=== PATIENT | male | born 1980 | race Caucasian/White ===

== ENCOUNTER 2017-02-22 10:30 | Emergency (ER) | payer SELFPAY ==
[~2017-02-22] VITALS: Ht 170.2 cm; Wt 72.6 kg
[2017-02-22 10:39] VITALS: BP 140/87; PULSE 97; RESP 16; TEMP 98.4; O2SAT 98
[2017-02-22] MEDS ORDERED: HIBI4LIQ TOPICAL (11:04)
[2017-02-22] MEDS ORDERED: BACT800T5 PO (11:04)
--- NOTE | 2017-02-22 11:04 | PD ---
HPI Chief Complaint: Skin Problem Time Seen by Provider: 10:54 Travel History International Travel<30 days: No Contact w/Intl Traveler<30days: No Traveled to known affect area: No History of Present Illness HPI The patient is a 37-year-old male who presents to the emergency department for skin lesions on his hands and arms bilaterally. The patient states she's had skin lesions over the last week, he has been applying over-the- counter Neosporin with minimal relief of his symptoms. He does have a previous history of staph infection, but denies any similar lesions to the arms or feet in the past. He denies any IV drug use. He denies any fever, chills, or sweats. Symptoms are mild, possibly exacerbated after receiving multiple abrasions to the upper extremities well working outside. PFSH Past Medical History Diminished Hearing: No Immunizations Current: Yes Influenza Vaccination: No Past Surgical History Other Surgery: Yes (TOOTH EXTRACTION) Social History Alcohol Use: No Tobacco Use: Yes (1PPD) Substance Use: No Allergies-Medications (Allergen,Severity, Reaction): Coded Allergies: No Known Allergies (Unverified , 02/22/17) Reported Meds & Prescriptions Reported Meds & Active Scripts Active No Active Prescriptions or Reported Medications Review of Systems General / Constitutional: No: Fever Musculoskeletal: No: Edema, Pain Skin: Positive Other Psychiatric: No: Substance Abuse (denies IVDA) Endocrine: No: Other (no history of diabetes) Physical Exam Narrative GENERAL: Awake, alert, nontoxic-appearing 37-year-old male who appears his stated age and is in no acute respiratory distress. SKIN: Focused skin assessment warm/dry. Patient has circular lesions on the extensor surface of the hands and forearms bilateral with small amount of crusting consistent with impetigo. HEAD: Atraumatic. Normocephalic. EYES: Pupils equal and round. No scleral icterus. No injection or drainage. MUSCULOSKELETAL: No obvious deformities. No clubbing. No cyanosis. No edema. NEUROLOGICAL: Awake and alert. No obvious cranial nerve deficits. Motor grossly within normal limits. Normal speech. PSYCHIATRIC: Appropriate mood and affect; insight and judgment normal. Data Data Last Documented VS Vital Signs Date Time Temp Pulse Resp B/P (MAP) Pulse Ox O2 Delivery O2 Flow Rate FiO2 02/22/17 10:39 98.4 97 16 140/87 (104) 98 MDM Medical Decision Making Medical Screen Exam Complete: Yes Emergency Medical Condition: Yes Medical Record Reviewed: Yes Differential Diagnosis Differential diagnosis includes impetigo, cellulitis, abscess, wound infection. Narrative Course The patient's physical examination is consistent with impetigo. The patient will be placed on Bactrim to cover for MRSA as well as Hibiclens. He is advised to wash wounds daily with soap and water. Follow-up with a primary physician. Diagnosis Primary Impression: Impetigo Patient Instructions: General Instructions Additional Instructions: Medications as directed. Wound care instructions. Wash areas with soap and water twice a day. Return if symptoms worsen or progress. Med/Other Pt SpecificInfo: Prescription(s) given Scripts Chlorhexidine Gluconate Topical (Hibiclens Topical) 4% Liq 1 APPLIC TOPICAL ONCE for Skin Cleanser, #118 ML 0 Refills Prov: Rafa Estrada MD 02/22/17 Sulfamethoxazole-Trimethoprim (Bactrim DS) 800-160 Mg Tab 1 TAB PO BID for Infection, #20 TAB 0 Refills Prov: Rafa Estrada MD 02/22/17 Disposition: 01 DISCHARGE HOME Condition: Stable Rafa Estrada MD Feb 22, 2017 11:04
== END 2017-02-22 11:22 | disposition home or self-care (01) ==
LOC: PHEFT 10:30
DX: L01.00 Impetigo, unspecified (principal)
CPT/HCPCS: 99283

== ENCOUNTER 2017-05-16 09:17 | Emergency (ER) | payer SELFPAY ==
[~2017-05-16] VITALS: Ht 170.2 cm; Wt 73.0 kg
[~2017-05-16 09:17] MED LIST: BACT800T5 PO; HIBI4LIQ TOPICAL
[2017-05-16 09:20] VITALS: BP 126/63; PULSE 85; RESP 18; TEMP 97.9; O2SAT 98
[2017-05-16] MEDS ORDERED: EFFE150C PO (10:28)
--- NOTE | 2017-05-16 10:52 | PD ---
HPI Chief Complaint: Cold / Flu Symptoms Time Seen by Provider: 10:33 Travel History International Travel<30 days: No Contact w/Intl Traveler<30days: No Traveled to known affect area: No History of Present Illness HPI 37-year-old male with history of tobacco use presents for evaluation. Reports over the past week he's had cough and congestion. Symptoms have worsened over the past day. He has now developed myalgias, headache, worsening cough and congestion. The cough is productive with yellow sputum production. He reports that yesterday evening he had some nausea with 2 episodes of emesis but none today. He denies any nausea today. He denies abdominal pain, diarrhea, IV drug abuse, stiff neck, rash or recent travel. He reports that at work he has had multiple sick contacts with upper respiratory symptoms. He has no other complaints at this time. PFSH Past Medical History Depression: Yes Diminished Hearing: No Psychiatric: Yes ("ANGER ISSUES") Immunizations Current: Yes Past Surgical History Other Surgery: Yes (TOOTH EXTRACTION) Social History Alcohol Use: No Tobacco Use: Yes (1PPD) Substance Use: No Allergies-Medications (Allergen,Severity, Reaction): Coded Allergies: No Known Allergies (Unverified Adverse Reaction, Unknown, 05/16/17) Reported Meds & Prescriptions Reported Meds & Active Scripts Active Zofran (Ondansetron HCl) 4 Mg Tab 4 Mg PO Q6HR PRN Tessalon Perles (Benzonatate) 100 Mg Cap 200 Mg PO TID PRN Reported Effexor XR 24 HR (Venlafaxine HCl) 150 Mg Cap 150 Mg PO DAILY Review of Systems Except as stated in HPI: all other systems reviewed are Neg Physical Exam Narrative GENERAL: Well-developed well-nourished male in no acute distress. His vital signs have been reviewed. SKIN: Warm and dry. HEAD: Atraumatic. Normocephalic. EYES: Pupils equal and round. No scleral icterus. No injection or drainage. ENT: No nasal bleeding or discharge. Mucous membranes pink and moist. NECK: Trachea midline. No JVD. No lymphadenopathy. Neck supple full range of motion. CARDIOVASCULAR: Regular rate and rhythm. No murmur appreciated. RESPIRATORY: No accessory muscle use. Clear to auscultation. Breath sounds equal bilaterally. No crackles no wheezing or rhonchi GASTROINTESTINAL: Abdomen soft, non-tender, nondistended. Hepatic and splenic margins not palpable. MUSCULOSKELETAL: No obvious deformities. No edema. NEUROLOGICAL: Awake and alert. No obvious cranial nerve deficits. Motor grossly within normal limits. Normal speech. PSYCHIATRIC: Appropriate mood and affect; insight and judgment normal. Data Data Last Documented VS Vital Signs Date Time Temp Pulse Resp B/P (MAP) Pulse Ox O2 Delivery O2 Flow Rate FiO2 05/16/17 09:20 97.9 85 18 126/63 (84) 98 Orders Orders Influenzae A/B Antigen (05/16/17 10:27) Acetaminophen (Tylenol) (05/16/17 11:00) Chest, Single Ap (05/16/17 ) Ed Discharge Order (05/16/17 11:31) [place] Medical Decision Making Medical Screen Exam Complete: Yes Emergency Medical Condition: Yes Medical Record Reviewed: Yes Differential Diagnosis Bronchitis, pneumonia, influenza, sinusitis, gastroenteritis, sepsis, meningitis Narrative Course 37-year-old male with 1 week of cough, congestion, worse over the past day with associated myalgias, headache. He reports 2 episodes of emesis last night but none today. He denies any current nausea. He appears well. He has no meningeal signs. His abdomen is soft and nontender. Lungs are clear to auscultation. He will be given Tylenol for myalgias. A chest x-ray and influenza antigen test have been ordered. Chest x-ray reveals no acute abnormalities. Influenza antigen test is negative. The patient does appear to have a viral upper respiratory infection. He will be given medication for symptom relief. Discussed signs and symptoms were returning to the emergency room. Diagnosis Primary Impression: Upper respiratory infection Additional Instructions: Medication as prescribed. Tylenol or Motrin for fever per dosing instructions on bottle. Stay well hydrated and well-nourished. Return for any emergent medical conditions. Med/Other Pt SpecificInfo: Prescription(s) given Scripts Ondansetron (Zofran) 4 Mg Tab 4 MG PO Q6HR Y for NAUSEA OR VOMITING, #15 TAB 0 Refills Prov: Ruben Young MD 05/16/17 Benzonatate (Tessalon Perles) 100 Mg Cap 200 MG PO TID Y for COUGH, #30 CAP 0 Refills Prov: Ruben Young MD 05/16/17 Disposition: 01 DISCHARGE HOME Condition: Stable Nilson Burgosy P. PA May 16, 2017 10:52
[2017-05-16] MEDS ORDERED: ACETAMINOPHEN 325 MG TAB PO ONE (11:00)
--- NOTE | 2017-05-16 11:04 | RADRPT ---
EXAM DATE/TIME: 05/16/2017 10:54 [facility] COMPARISON: No previous studies available for comparison. INDICATIONS : Cough, nausea, vomiting. MEDICAL HISTORY : None. SURGICAL HISTORY : None. ENCOUNTER: Initial ACUITY: 2 days PAIN SCORE: 0/10 LOCATION: Bilateral chest FINDINGS: A single view of the chest demonstrates the lungs to be symmetrically aerated without evidence of mas s, infiltrate or effusion. The cardiomediastinal contours are unremarkable. Osseous structures are intact. CONCLUSION: Normal examination. Nikolas Mcadams MD on May 16, 2017 at 11:02 Board Certified Radiologist. This report was verified electronically.
[2017-05-16] MEDS ORDERED: BENZ100 PO (11:31)
[2017-05-16] MEDS ORDERED: ZOFR4TAB PO (11:31)
== END 2017-05-16 11:52 | disposition home or self-care (01) ==
LOC: PHED 09:17 → PHEFT 11:52
DX: J06.9 Acute upper respiratory infection, unspecified (principal); M79.1 Myalgia; R51 Headache; R11.2 Nausea with vomiting, unspecified; Z72.0 Tobacco use
CPT/HCPCS: 71045; 87804; 99284

== ENCOUNTER 2017-08-25 22:15 | Emergency (ER) | payer SELFPAY ==
[~2017-08-25] VITALS: Ht 170.2 cm; Wt 70.0 kg
[~2017-08-25 22:15] MED LIST changes: -BACT800T5 PO; +BENZ100 PO; +EFFE150C PO; -HIBI4LIQ TOPICAL; +ZOFR4TAB PO
[2017-08-25 22:26] VITALS: BP 160/96; PULSE 117; RESP 18; TEMP 98.5; O2SAT 96
[2017-08-26 01:06] LABS: AUTOMATED NEUTROPHIL # 9.4 TH/MM3 (1.8-7.7); BASOPHIL # 0.1 TH/MM3 (0-0.2); BASOPHIL % 0.5 % (0.0-2.0); EOSINOPHIL # 0.1 TH/MM3 (0-0.4); EOSINOPHIL % 0.8 % (0.0-4.0); HEMATOCRIT 44.2 % (39.0-51.0); HEMOGLOBIN 15.5 GM/DL (13.0-17.0); LYMPH % 12.2 % (9.0-44.0); LYMPHOCYTE # 1.4 TH/MM3 (1.0-4.8); MEAN CORPUSCULAR HEMOGLOBIN 31.6 PG (27.0-34.0); MEAN CORPUSCULAR HGB CONC 35.1 % (32.0-36.0); MEAN PLATELET VOLUME 7.4 FL (7.0-11.0); MONO % 5.8 % (0.0-8.0); MONOCYTE # 0.7 TH/MM3 (0-0.9); NEUT % 80.7 % (16.0-70.0); PLATELET COUNT 257 TH/MM3 (150-450); RED BLOOD COUNT 4.91 MIL/MM3 (4.50-5.90); RED CELL DISTRIBUTION WIDTH 13.7 % (11.6-17.2); WHITE BLOOD COUNT 11.6 TH/MM3 (4.0-11.0)
[2017-08-26 01:22] LABS: ALBUMIN 4.3 GM/DL (3.4-5.0); ALT (GPT) 18 U/L (12-78); AST (GOT) 12 U/L (15-37); BICARBONATE 30.6 MEQ/L (21.0-32.0); BLOOD UREA NITROGEN 13 MG/DL (7-18); CALCIUM 9.5 MG/DL (8.5-10.1); CHLORIDE 105 MEQ/L (98-107); CREATININE 1.11 MG/DL (0.60-1.30); GLOMERULAR FILTRATION RATE 75 ML/MIN (>89); GLUCOSE,RANDOM 78 MG/DL (74-106); SODIUM (NA) 141 MEQ/L (136-145)
[2017-08-26 01:32] LABS: ALKALINE PHOSPHATASE 82 U/L (45-117); TOTAL BILIRUBIN ADULT 0.5 MG/DL (0.2-1.0)
--- NOTE | 2017-08-26 03:09 | PD ---
HPI Chief Complaint: Psychiatric Symptoms Time Seen by Provider: 23:59 Travel History International Travel<30 days: No Contact w/Intl Traveler<30days: No Traveled to known affect area: No History of Present Illness HPI 37-year-old white male presents emergency department on a voluntary basis for psychological evaluation. Patient states that he has become increasingly depressed over the last 2 weeks. Much more so in the last few days. Patient reports that he has recently lost his job. He has had a loss of energy and drive. He sleeping and not eating. Patient states that he has not eaten in 3 days. He is very depressed. He is contemplated suicide but has no intention on hurting himself. No homicidal ideation. No toxic ingestions. He states that he has had a history of substance abuse. 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 He is attempting to get his life back together. He has not been able to contact his mother due to a restraining order. The patient also reports his father is not supportive. He denies any fever chills. No chest pain or shortness of breath. No nausea vomiting. No abdominal pain or urinary symptoms. Symptoms are moderate. Worsened by loss of employment. PFSH Past Medical History Narrative Medical ADHD, depression, substance abuse ADHD: Yes Depression: Yes Diminished Hearing: No Psychiatric: Yes ("ANGER ISSUES") Immunizations Current: Yes Tetanus Vaccination: < 5 Years Influenza Vaccination: No Past Surgical History Other Surgery: Yes (TOOTH EXTRACTION) Social History Alcohol Use: No Tobacco Use: Yes (1PPD) Substance Use: Yes Allergies-Medications (Allergen,Severity, Reaction): Coded Allergies: Penicillins (Verified Allergy, Severe, 08/25/17) nausea Reported Meds & Prescriptions Reported Meds & Active Scripts Active Zofran (Ondansetron HCl) 4 Mg Tab 4 Mg PO Q6HR PRN Tessalon Perles (Benzonatate) 100 Mg Cap 200 Mg PO TID PRN Reported Effexor XR 24 HR (Venlafaxine HCl) 150 Mg Cap 150 Mg PO DAILY Review of Systems General / Constitutional: No: Fever Eyes: No: Visual changes HENT: No: Headaches Cardiovascular: No: Chest Pain or Discomfort Respiratory: No: Shortness of Breath Gastrointestinal: No: Abdominal Pain Genitourinary: No: Dysuria Musculoskeletal: No: Pain Skin: No Rash Neurologic: No: Weakness Psychiatric: Positive: Anxiety, Depression, Suicidal Ideations, Mood Disorder, Substance Abuse, No: Disorder of Thought, Homicidal Ideation Endocrine: No: Polydipsia Hematologic/Lymphatic: No: Easy Bruising Physical Exam Narrative GENERAL: Well-nourished, well-developed patient. SKIN: Warm and dry. HEAD: Normocephalic and atraumatic. EYES: No scleral icterus. No injection or drainage. ENT: No nasal drainage noted. Mucous membranes pink. Airway patent. NECK: Supple, trachea midline. Moves head freely without obvious discomfort. CARDIOVASCULAR: Regular rate and rhythm without murmurs, gallops, or rubs. RESPIRATORY: Breath sounds equal bilaterally. No accessory muscle use. GASTROINTESTINAL: Abdomen soft, non-tender, nondistended. EXTREMITIES: No cyanosis or edema. BACK: Nontender without obvious deformity. No CVA tenderness. NEURO: Patient is alert and oriented. no sensorimotor deficits. Nonfocal. Normal speech. PSYCH: No delusions. No auditory or visual hallucinations. Data Data Last Documented VS Vital Signs Date Time Temp Pulse Resp B/P (MAP) Pulse Ox O2 Delivery O2 Flow Rate FiO2 08/25/17 22:26 98.5 117 18 160/96 (117) 96 Orders Orders Complete Blood Count With Diff (08/26/17 00:21) Comprehensive Metabolic Panel (08/26/17 00:21) Thyroid Stimulating Hormone (08/26/17 00:21) Psych Screen (08/26/17 00:21) Drug Screen, Random Urine (08/26/17 00:21) Alcohol (Ethanol) (08/26/17 00:21) Labs Laboratory Tests Test 08/26/17 00:35 08/26/17 00:53 Urine Opiates Screen NEG Urine Barbiturates Screen NEG Urine Amphetamines Screen NEG Urine Benzodiazepines Screen NEG Urine Cocaine Screen NEG Urine Cannabinoids Screen NEG White Blood Count 11.6 TH/MM3 Red Blood Count 4.91 MIL/MM3 Hemoglobin 15.5 GM/DL Hematocrit 44.2 % Mean Corpuscular Volume 90.0 FL Mean Corpuscular Hemoglobin 31.6 PG Mean Corpuscular Hemoglobin Concent 35.1 % Red Cell Distribution Width 13.7 % Platelet Count 257 TH/MM3 Mean Platelet Volume 7.4 FL Neutrophils (%) (Auto) 80.7 % Lymphocytes (%) (Auto) 12.2 % Monocytes (%) (Auto) 5.8 % Eosinophils (%) (Auto) 0.8 % Basophils (%) (Auto) 0.5 % Neutrophils # (Auto) 9.4 TH/MM3 Lymphocytes # (Auto) 1.4 TH/MM3 Monocytes # (Auto) 0.7 TH/MM3 Eosinophils # (Auto) 0.1 TH/MM3 Basophils # (Auto) 0.1 TH/MM3 CBC Comment DIFF FINAL Differential Comment Blood Urea Nitrogen 13 MG/DL Creatinine 1.11 MG/DL Random Glucose 78 MG/DL Total Protein 8.0 GM/DL Albumin 4.3 GM/DL Calcium Level 9.5 MG/DL Alkaline Phosphatase 82 U/L Aspartate Amino Transf (AST/SGOT) 12 U/L Alanine Aminotransferase (ALT/SGPT) 18 U/L Total Bilirubin 0.5 MG/DL Sodium Level 141 MEQ/L Potassium Level 4.5 MEQ/L Chloride Level 105 MEQ/L Carbon Dioxide Level 30.6 MEQ/L Anion Gap 5 MEQ/L Estimat Glomerular Filtration Rate 75 ML/MIN Thyroid Stimulating Hormone 3rd Gen 0.987 uIU/ML Ethyl Alcohol Level LESS THAN 3 MG/DL MDM Medical Decision Making Medical Screen Exam Complete: Yes Emergency Medical Condition: Yes Medical Record Reviewed: Yes Interpretation(s) Laboratory Tests Test 08/26/17 00:35 08/26/17 00:53 Urine Opiates Screen NEG Urine Barbiturates Screen NEG Urine Amphetamines Screen NEG Urine Benzodiazepines Screen NEG Urine Cocaine Screen NEG Urine Cannabinoids Screen NEG White Blood Count 11.6 TH/MM3 Red Blood Count 4.91 MIL/MM3 Hemoglobin 15.5 GM/DL Hematocrit 44.2 % Mean Corpuscular Volume 90.0 FL Mean Corpuscular Hemoglobin 31.6 PG Mean Corpuscular Hemoglobin Concent 35.1 % Red Cell Distribution Width 13.7 % Platelet Count 257 TH/MM3 Mean Platelet Volume 7.4 FL Neutrophils (%) (Auto) 80.7 % Lymphocytes (%) (Auto) 12.2 % Monocytes (%) (Auto) 5.8 % Eosinophils (%) (Auto) 0.8 % Basophils (%) (Auto) 0.5 % Neutrophils # (Auto) 9.4 TH/MM3 Lymphocytes # (Auto) 1.4 TH/MM3 Monocytes # (Auto) 0.7 TH/MM3 Eosinophils # (Auto) 0.1 TH/MM3 Basophils # (Auto) 0.1 TH/MM3 CBC Comment DIFF FINAL Differential Comment Blood Urea Nitrogen 13 MG/DL Creatinine 1.11 MG/DL Random Glucose 78 MG/DL Total Protein 8.0 GM/DL Albumin 4.3 GM/DL Calcium Level 9.5 MG/DL Alkaline Phosphatase 82 U/L Aspartate Amino Transf (AST/SGOT) 12 U/L Alanine Aminotransferase (ALT/SGPT) 18 U/L Total Bilirubin 0.5 MG/DL Sodium Level 141 MEQ/L Potassium Level 4.5 MEQ/L Chloride Level 105 MEQ/L Carbon Dioxide Level 30.6 MEQ/L Anion Gap 5 MEQ/L Estimat Glomerular Filtration Rate 75 ML/MIN Thyroid Stimulating Hormone 3rd Gen 0.987 uIU/ML Ethyl Alcohol Level LESS THAN 3 MG/DL Differential Diagnosis MDM: High Differential diagnoses: Schizophrenia, schizoaffective disorder, bipolar, anxiety, depression, adjustment reaction, mood disorder NOS, ODD, depressive disorder NOS, dementia, dementia with agitation, psychosis NOS, substance induced mood disorder, DMDD, Asperger syndrome, infection,electrolyte abnormality, malingering. Narrative Course Mental health screening discussed with the patient. Psychiatric screen ordered. The patient has been medically cleared. This is medical clearance for psychiatric admission Diagnosis Primary Impression: Medical clearance for psychiatric admission Condition: Stable Paul Bocanegra August 26, 2017 03:09
[2017-08-26 09:31] VITALS: BP 120/81; PULSE 89; RESP 18; O2SAT 100
--- NOTE | 2017-08-26 18:37 | PD ---
Physical Exam Time Seen by Provider: 18:35 SCHUYLER Jaquez has evaluated the patient and cleared the patient for discharge. The patient has been given information for follow-up at [facility]. Data Data Last Documented VS Vital Signs Date Time Temp Pulse Resp B/P (MAP) Pulse Ox O2 Delivery O2 Flow Rate FiO2 08/26/17 18:30 08/26/17 09:31 89 18 100 Room Air 08/25/17 22:26 98.5 Orders Orders Complete Blood Count With Diff (08/26/17 00:21) Comprehensive Metabolic Panel (08/26/17 00:21) Thyroid Stimulating Hormone (08/26/17 00:21) Psych Screen (08/26/17 00:21) Drug Screen, Random Urine (08/26/17 00:21) Alcohol (Ethanol) (08/26/17 00:21) Diet Regular Basic (08/26/17 Breakfast) Diet Regular Basic (08/26/17 Lunch) Diet Regular Basic (08/26/17 Dinner) Labs Laboratory Tests Test 08/26/17 00:35 08/26/17 00:53 Urine Opiates Screen NEG Urine Barbiturates Screen NEG Urine Amphetamines Screen NEG Urine Benzodiazepines Screen NEG Urine Cocaine Screen NEG Urine Cannabinoids Screen NEG White Blood Count 11.6 TH/MM3 Red Blood Count 4.91 MIL/MM3 Hemoglobin 15.5 GM/DL Hematocrit 44.2 % Mean Corpuscular Volume 90.0 FL Mean Corpuscular Hemoglobin 31.6 PG Mean Corpuscular Hemoglobin Concent 35.1 % Red Cell Distribution Width 13.7 % Platelet Count 257 TH/MM3 Mean Platelet Volume 7.4 FL Neutrophils (%) (Auto) 80.7 % Lymphocytes (%) (Auto) 12.2 % Monocytes (%) (Auto) 5.8 % Eosinophils (%) (Auto) 0.8 % Basophils (%) (Auto) 0.5 % Neutrophils # (Auto) 9.4 TH/MM3 Lymphocytes # (Auto) 1.4 TH/MM3 Monocytes # (Auto) 0.7 TH/MM3 Eosinophils # (Auto) 0.1 TH/MM3 Basophils # (Auto) 0.1 TH/MM3 CBC Comment DIFF FINAL Differential Comment Blood Urea Nitrogen 13 MG/DL Creatinine 1.11 MG/DL Random Glucose 78 MG/DL Total Protein 8.0 GM/DL Albumin 4.3 GM/DL Calcium Level 9.5 MG/DL Alkaline Phosphatase 82 U/L Aspartate Amino Transf (AST/SGOT) 12 U/L Alanine Aminotransferase (ALT/SGPT) 18 U/L Total Bilirubin 0.5 MG/DL Sodium Level 141 MEQ/L Potassium Level 4.5 MEQ/L Chloride Level 105 MEQ/L Carbon Dioxide Level 30.6 MEQ/L Anion Gap 5 MEQ/L Estimat Glomerular Filtration Rate 75 ML/MIN Thyroid Stimulating Hormone 3rd Gen 0.987 uIU/ML Ethyl Alcohol Level LESS THAN 3 MG/DL MDM Supervised Visit with GRIC[facility]: No Narrative Course SCHUYLER Srivastava has evaluated the patient and cleared the patient for discharge. The patient has been given information for follow-up at [facility]. Patient contracts safety. Denies suicidal or homicidal ideations. Patient will be provided community resource packet to [facility] for follow-up. Has friends and family for support. Patient was medically cleared by alternate provider prior to psych screening. Patient has been evaluated by psychiatry and and is now cleared for discharge. Diagnosis Primary Impression: Adjustment reaction Qualified Codes: F43.20 - Adjustment disorder, unspecified Referrals: [facility] (Out patient) call for appointment Medication Management [facility] Primary Care Physician Psychiatrist Evelin [facility] Patient Instructions: General Instructions, Stress (ED) Departure Forms: Tests/Procedures Additional Instruction: Contract safety to your self and others Follow-up with psychiatry Follow-up with primary care provider Follow-up with Antonio Woodward Return to the emergency department immediately with worsening of symptoms Med/Other Pt SpecificInfo: No Change to Meds, No Meds Exist/No RX given Disposition: 01 DISCHARGE HOME Condition: Stable Yolanda Jones August 26, 2017 18:37
--- NOTE | 2017-08-26 18:47 | PD ---
History of Present Illness Chief Complaint: Psychiatric Symptoms Time Seen by Provider: 18:00 Travel History International Travel<30 Days: No Contact w/Intl Traveler<30days: No Known affected area: No Legal Status Legal Status: Voluntary History of Present Illness: This is a 37-year-old single, male who presents voluntarily to the ED for reports of depression. Reviewed electronic medical record, labs, discuss case with staff. Patient was assessed in his room and the J pod. Patient was found lying down in a darkened room he awoke to verbal stimuli. He is awake, alert, and oriented 4. His speech is clear, logical, and organized. There is no internal stimulation noted nor any signs of thought blocking. He denies being suicidal, homicidal, having auditory or visual hallucinations. He reports that he has been feeling depressed of late and has not been to work. He does report some external stress with his extended family. PFSH Past Medical History ADHD: Yes Depression: Yes Diminished Hearing: No Psychiatric: Yes ("ANGER ISSUES") Immunizations Current: Yes Tetanus Vaccination: < 5 Years Influenza Vaccination: No Past Surgical History Other Surgery: Yes (TOOTH EXTRACTION) Psychiatric History Psychiatric History Hx Psychiatric Treatment: Denied History of Inpatient Treatment: No Guns or firearms in home: No Social History Hx Alcohol Use: No Hx Tobacco Use: Yes (1PPD) Hx Substance Use: Yes Other Substances Used: K-2 STATED HE STOPPPED 2 WEEKS PRIOR Hx of Substance Use Treatment: No Allergies-Medications (Allergen,Severity, Reaction): Coded Allergies: Penicillins (Verified Allergy, Severe, 08/25/17) nausea Reported Meds & Prescriptions Reported Meds & Active Scripts Active Zofran (Ondansetron HCl) 4 Mg Tab 4 Mg PO Q6HR PRN Tessalon Perles (Benzonatate) 100 Mg Cap 200 Mg PO TID PRN Reported Effexor XR 24 HR (Venlafaxine HCl) 150 Mg Cap 150 Mg PO DAILY Mental Status Examination Appearance: Appropriate Consciousness: Alert Orientation: x4 Motor Activity: Normal gait Speech: Unremarkable Language: Adequate Fund of Knowledge: Adequate Attention and Concentration: Adequate Memory: Unremarkable Mood: Appropriate Affect: Appropriate Thought Process & Associations: Intact Thought Content: Appropriate Hallucination Type: None Delusion Type: None Suicidal Ideation: No Suicidal Plan: No Suicidal Intention: No Homicidal Ideation: No Homicidal Plan: No Homicidal Intention: No Insight: Adequate Judgment: Impulsive MDM Medical Decision Making Medical Record Reviewed: Yes Assessment/Plan 37-year-old male who reports this facility voluntarily with reports of depression. Patient states that he has had a history of depression previously. He denies any previous suicide attempts. At this time he reports that he is not suicidal nor is he homicidal. He has not experienced any auditory or visual hallucinations. I can elicit no delusional material at this time. Patient does not appear to be internally stimulated. Patient does not meet inpatient admission criteria at this time. Discussed following up at the [facility] outpatient clinic for medication and therapy. Patient is on board with this plan. Advised him to return should his condition worsen. Patient did ask about a letter for his work which he will be provided. Orders Orders Complete Blood Count With Diff (08/26/17 00:21) Comprehensive Metabolic Panel (08/26/17 00:21) Thyroid Stimulating Hormone (08/26/17 00:21) Psych Screen (08/26/17 00:21) Drug Screen, Random Urine (08/26/17 00:21) Alcohol (Ethanol) (08/26/17 00:21) Diet Regular Basic (08/26/17 Breakfast) Diet Regular Basic (08/26/17 Lunch) Diet Regular Basic (08/26/17 Dinner) Ed Discharge Order (08/26/17 18:37) Results Vital Signs Date Time Temp Pulse Resp B/P (MAP) Pulse Ox O2 Delivery O2 Flow Rate FiO2 08/26/17 18:30 08/26/17 09:31 89 18 120/81 (94) 100 Room Air 08/25/17 22:26 98.5 117 18 160/96 (117) 96 Laboratory Tests Test 08/26/17 00:35 08/26/17 00:53 Urine Opiates Screen NEG Urine Barbiturates Screen NEG Urine Amphetamines Screen NEG Urine Benzodiazepines Screen NEG Urine Cocaine Screen NEG Urine Cannabinoids Screen NEG White Blood Count 11.6 Red Blood Count 4.91 Hemoglobin 15.5 Hematocrit 44.2 Mean Corpuscular Volume 90.0 Mean Corpuscular Hemoglobin 31.6 Mean Corpuscular Hemoglobin Concent 35.1 Red Cell Distribution Width 13.7 Platelet Count 257 Mean Platelet Volume 7.4 Neutrophils (%) (Auto) 80.7 Lymphocytes (%) (Auto) 12.2 Monocytes (%) (Auto) 5.8 Eosinophils (%) (Auto) 0.8 Basophils (%) (Auto) 0.5 Neutrophils # (Auto) 9.4 Lymphocytes # (Auto) 1.4 Monocytes # (Auto) 0.7 Eosinophils # (Auto) 0.1 Basophils # (Auto) 0.1 CBC Comment DIFF FINAL Differential Comment Blood Urea Nitrogen 13 Creatinine 1.11 Random Glucose 78 Total Protein 8.0 Albumin 4.3 Calcium Level 9.5 Alkaline Phosphatase 82 Aspartate Amino Transf (AST/SGOT) 12 Alanine Aminotransferase (ALT/SGPT) 18 Total Bilirubin 0.5 Sodium Level 141 Potassium Level 4.5 Chloride Level 105 Carbon Dioxide Level 30.6 Anion Gap 5 Estimat Glomerular Filtration Rate 75 Thyroid Stimulating Hormone 3rd Gen 0.987 Ethyl Alcohol Level LESS THAN 3 Diagnosis Primary Impression: Adjustment reaction Psychiatrically Cleared: Yes Referrals: [facility] (Out patient) call for appointment Medication Management Medication Management [facility] Primary Care Physician Psychiatrist Evelin DECKER Behavioral Departure Forms: Tests/Procedures Patient Instructions: General Instructions, Stress (ED) Additional Instructions: Contract safety to your self and others Follow-up with psychiatry Follow-up with primary care provider Follow-up with Antonio Woodward Return to the emergency department immediately with worsening of symptoms Disposition: 01 DISCHARGE HOME Condition: Stable Problem Qualifiers Primary Impression: Adjustment reaction Qualified Codes: F43.20 - Adjustment disorder, unspecified Ayla Fowler August 26, 2017 18:46
== END 2017-08-26 19:01 | disposition home or self-care (01) ==
LOC: NEPD 22:15 → NEPJ 08-26 19:01
DX: F43.20 Adjustment disorder, unspecified (principal); F32.9 Major depressive disorder, single episode, unspecified; Z79.899 Other long term (current) drug therapy
CPT/HCPCS: 80053; 80307; 84443; 85025; 99283